=== PATIENT | female | born 1990 | race Caucasian/White ===

== ENCOUNTER 2016-07-29 13:21 | Emergency (ER) | payer SELFPAY ==
[2016-07-29 13:30] VITALS: RESP 16
[2016-07-29] MEDS ORDERED: NS 1,000 ML IV ONE ×2 (14:17→16:02)
[2016-07-29 14:52] LABS: % IMMATURE GRANULYOCYTES 0.7 % (0.0-1.1); ABSOLUTE IMMATURE GRANULOCYTES 0.09 10^3/uL (0.00-0.10); ADD DIFF? NO; ADD MORPH? NO; ADD SCAN? NO; ATYPICAL LYMPHOCYTE FLAG 0 (0-99); FRAGMENT RBC FLAG 0 (0-99); HEMATOCRIT 41.8 % (38.0-47.0); HEMOGLOBIN 13.6 g/dL (12.6-16.3); LEFT SHIFT FLG 0 (0-99); LIPEMIA HEMOLYSIS FLAG 80 (0-99); MEAN CELL HEMOGLOBIN 29.8 pg (27.9-34.1); MEAN CELL HEMOGLOBIN CONCENTR. 32.5 g/dL (32.4-36.7); MEAN CELL VOLUME 91.5 fL (81.5-99.8); MEAN PLATELET VOLUME 10.7 fL (8.7-11.7); PLATELET CLUMPS FLAG 10 (0-99); PLATELET COUNT 287 10^3/uL (150-400); RED BLOOD CELL COUNT 4.57 10^6/uL (4.18-5.33); RED CELL DISTRIBUTION WIDTH 13.1 % (11.5-15.2)
[2016-07-29 15:14] LABS: ANION GAP 23 mEq/L (8-16); CALCIUM 9.3 mg/dL (8.5-10.4); CARBON DIOXIDE 19 mEq/l (22-31); CHLORIDE 107 mEq/L (97-110); GLOMERULAR FILTRATION RATE > 60; GLUCOSE 51 mg/dL (70-100); POTASSIUM 3.5 mEq/L (3.5-5.2); SODIUM 149 mEq/L (134-144)
[2016-07-29 15:19] VITALS: TEMP 98.1
--- NOTE | 2016-07-29 15:25 | EDPHY ---
H & P Smoking Status: Never smoked Time Seen by Provider: 07/29/16 14:00 HPI/ROS: CHIEF COMPLAINT: Weakness HISTORY OF PRESENT ILLNESS: 25-year-old female presents to the emergency department by private vehicle with her boyfriend complaining of feeling very weak and chilled. Patient states that she drank a lot of alcohol last night and snorted cocaine. She states when she woke up this morning she was feeling very shaky and jittery. She felt nauseous. She states that she has not urinated today. No vomiting. No diarrhea. She denies chest pain or difficulty breathing. No other reported trauma. Her last menstrual period started 4 days ago. REVIEW OF SYSTEMS: Constitutional: No fever, no chills. Eyes: No double or blurry vision. ENT: No sore throat. Respiratory: No cough, no shortness of breath. Cardiac: No chest pain. Gastrointestinal: No abdominal pain, vomiting or diarrhea. Genitourinary: No dysuria. Musculoskeletal: No neck or back pain. Skin: No rashes. Neurological: No headache. (Margaret Toro) Past Medical/Surgical History: Substance abuse (Margaret Toro) Social History: Single (Margaret Toro) Physical Exam: General Appearance: Alert, no distress. 134/67, 97% on room air. Eyes: Pupils equal and round. Extraocular motions are all intact. ENT: Mouth: Mucous membranes very dry. Respiratory: No wheezing, rhonchi, or rales, lungs are clear to auscultation. Cardiovascular: Regular rate and rhythm. Gastrointestinal: Abdomen is soft and nontender, no masses, no rebound or guarding, bowel sounds normal. Neurological: Alert and oriented x 3, cranial nerves II through XII grossly intact Skin: Warm and dry, no rashes. Musculoskeletal: Nontender to palpate along the cervical, thoracic or lumbar spine. Neck is supple. Extremities: Full range of motion and no peripheral edema. Psychiatric: Patient is oriented X 3, there is no agitation. (Margaret Toro) Constitutional: Initial Vital Signs Temperature (C) 36.4 C 07/29/16 13:28 Heart Rate 77 07/29/16 13:28 Respiratory Rate 16 07/29/16 13:28 Blood Pressure 134/67 H 07/29/16 13:28 O2 Sat (%) 99 04/22/17 13:28 O2 Delivery Mode Room Air Allergies/Adverse Reactions: No Known Allergies Allergy (Verified 07/29/16 13:25) Home Medications: Medication Instructions Recorded Levothyroxine 07/29/16 PARoxetine HCL [Paxil 10mg (*)] 10 mg PO DAILY 07/29/16 Medical Decision Making ED Course/Re-evaluation: The patient was evaluated and managed by the physician's casino assistant manager. My cosignature indicates that I reviewed the chart and I agree with the findings and plan of care as documented. I am the secondary supervising physician. ( Frances Roper) 25-year-old female presents to the emergency department feeling very shaky and very dry. The patient had an IV established and laboratory studies were drawn. The patient had a random blood sugar of 51. She was given apple juice, peanut butter and crackers. Patient was given IV normal saline. The patient received 1 L of IV normal saline. After she drank some juice and eat some crackers, she was feeling very nauseous. She was given 4 mg of Zofran IV. 5:45 p.m.. Patient's feel much better. She is tolerating p. o. fluids and is comfortable being discharged home. Repeat blood sugar 74. (Margaret Toro) Differential Diagnosis: Including but not limited to dehydration, electrolyte abnormality, hypoglycemic , sepsis, gastritis, alcohol intoxication (Margaret Toro) - Data Points Laboratory Results: Laboratory Results 07/29/16 14:40 07/29/16 14:40 07/29/16 07/29/16 07/29/16 14:40 14:40 14:40 WBC 12.82 10^3/uL H 10^3/uL (3.80-9.50) RBC 4.57 10^6/uL 10^6/uL (4.18-5.33) Hgb 13.6 g/dL g/dL (12.6-16.3) Hct 41.8 % % (38.0-47.0) MCV 91.5 fL fL (81.5-99.8) MCH 29.8 pg pg (27.9-34.1) MCHC 32.5 g/dL g/dL (32.4-36.7) RDW 13.1 % % (11.5-15.2) Plt Count 287 10^3/uL 10^3/uL (150-400) MPV 10.7 fL fL (8.7-11.7) Neut % (Auto) 70.1 % % (39.3-74.2) Lymph % (Auto) 22.4 % % (15.0-45.0) [place] % (Auto) 4.8 % % (4.5-13.0) Eos % (Auto) 1.1 % % (0.6-7.6) Baso % (Auto) 0.9 % % (0.3-1.7) Nucleat RBC Rel Count 0.0 % % (0.0-0.2) Absolute Neuts (auto) 9.00 10^3/uL H 10^3/uL (1.70-6.50) Absolute Lymphs (auto) 2.87 10^3/uL 10^3/uL (1.00-3.00) Absolute Monos (auto) 0.61 10^3/uL 10^3/uL (0.30-0.80) Absolute Eos (auto) 0.14 10^3/uL 10^3/uL (0.03-0.40) Absolute Basos (auto) 0.11 10^3/uL H 10^3/uL (0.02-0.10) Absolute Nucleated RBC 0.00 10^3/uL 10^3/uL (0-0.01) Immature Gran % 0.7 % % (0.0-1.1) Immature Gran # 0.09 10^3/uL 10^3/uL (0.00-0.10) Sodium 149 mEq/L H mEq/L (134-144) Potassium 3.5 mEq/L mEq/L (3.5-5.2) Chloride 107 mEq/L mEq/L (97-110) Carbon Dioxide 19 mEq/l L mEq/l (22-31) Anion Gap 23 mEq/L H mEq/L (8-16) BUN 15 mg/dL mg/dL (7-23) Creatinine 1.0 mg/dL mg/dL (0.6-1.0) Estimated GFR > 60 Glucose 51 mg/dL L mg/dL (70-100) Calcium 9.3 mg/dL mg/dL (8.5-10.4) Beta HCG, Qual NEGATIVE Medications Given: Discontinued Medications Sodium Chloride (Ns) 1,000 mls @ 0 mls/hr IV ONCE ONE PRN Reason: Wide Open Stop: 07/29/16 14:18 Last Admin: 07/29/16 15:01 Dose: 1,000 mls Sodium Chloride (Ns) 1,000 mls @ 0 mls/hr IV ONCE ONE PRN Reason: Wide Open Stop: 07/29/16 16:03 Last Admin: 07/29/16 16:10 Dose: 1,000 mls Ondansetron HCl (Zofran) 4 mg IVP EDNOW ONE Stop: 07/29/16 16:04 Last Admin: 07/29/16 16:10 Dose: 4 mg Departure - Departure Disposition: Home, Routine, Self-Care Clinical Impression: Weakness, Shakiness, Hypoglycemia Condition: Good Instructions: Weakness (ED), Non-diabetic Hypoglycemia (ED) Additional Instructions: Your blood sugar was low in the emergency department and that is why your given juice, peanut butter and crackers. You should continue to eat normally. You should not abuse alcohol or any other drugs. Return to the emergency department if you have any episodes of passing out, if you develop pain in your chest, if you develop difficulty breathing, or if you feel worse in any way. Referrals: DASHA KRISHNA [Other] - 1-2 days without fail
[2016-07-29] MEDS ORDERED: ONDANSETRON 4 MG/2 ML VIAL IVP ONE (16:03)
[2016-07-29 18:08] VITALS: BP 110/71; PULSE 70; O2SAT 96
== END 2016-07-29 18:03 | disposition home or self-care (01) ==
DX: R53.1 Weakness (principal); R25.1 Tremor, unspecified; E16.2 Hypoglycemia, unspecified
CPT/HCPCS: 82947-QW; 96374; J2405